=== PATIENT | male | born 1985 | race American Indian/Alaskan Native ===

== ENCOUNTER 2017-09-26 13:08 | Emergency (ER) | payer OTHER, MEDICAID ==
[2017-09-26] MEDS ORDERED: MOTRIN PO ONE (14:21)
[2017-09-26 15:26] VITALS: BP 127/75
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
== END 2017-09-26 16:43 | disposition home or self-care (01) ==
LOC: ED 13:08
DX: S16.1XXA Strain of muscle, fascia and tendon at neck level, initial encounter (principal); F17.200 Nicotine dependence, unspecified, uncomplicated; V49.59XA Passenger injured in collision with other motor vehicles in traffic accident, initial encounter; Y93.89 Activity, other specified; Y99.8 Other external cause status; Y92.488 Other paved roadways as the place of occurrence of the external cause
CPT/HCPCS: 72040